=== PATIENT | female | born 1960 | race Caucasian/White ===

== ENCOUNTER → 2018-04-07 14:14 | Outpatient (POV) | payer OTHER, SELFPAY | PROVIDERS: Family Provider Nurse Practitioner; Visit Provider Physician Assistant | DX: Z00.00 Encounter for general adult medical examination without abnormal findings (principal) ==

== ENCOUNTER → 2018-08-12 14:52 | Outpatient (POV) | payer OTHER, SELFPAY | PROVIDERS: Visit Provider Dermatology | DX: Z00.00 Encounter for general adult medical examination without abnormal findings (principal) ==

== ENCOUNTER → 2018-08-26 09:50 | Outpatient (CLI) | payer OTHER, SELFPAY ==
--- NOTE | 2018-08-26 10:14 | MM_ITS ---
MM Dig screening mamm BI w/CAD CAD Screening COMPARISON: Digital mammograms with CAD 06/11/2017 and 08/29/2015 INDICATION: There is no personal or family history of breast cancer TECHNIQUE: Standard CC and MLO images were obtained. R2 CAD reviewed. FINDINGS: Moderate diffuse heterogenic fibroglandular densities are seen in both breasts and the findings are bilateral and symmetrical. There is a mole marker in her quadrant left breast. There is no suspicious lesion and there are no suspicious microcalcifications. IMPRESSION: Stable moderate breast density with no suspicious lesion seen BI-RADS Category: 1 Negative RECOMMENDED FOLLOW-UP: 1YR - 1 YEAR FOLLOW-UP (A letter has been sent to the patient regarding results of the study.)
[2018-08-26 12:40] LABS: Alanine Aminotransferase 25 U/L (12-78); Albumin Level 3.9 gm/dL (3.4-5.0); Albumin/Globulin Ratio 1.4 (1.1-1.8); Alkaline Phosphatase 60 U/L (46-116); Anion Gap 15.5 mEq/L (5-15); Aspartate Amino Transferase 18 U/L (15-37); Bilirubin,Total 0.5 mg/dL (0.2-1.0); Blood Urea Nitrogen 15 mg/dL (7-18); Calcium 8.7 mg/dL (8.5-10.1); Carbon Dioxide 27 mmol/L (21.0-32.0); Chloride 102 mmol/L (98-107); Chol/HDL Ratio 4.1 (1-3.5); Cholesterol 189 mg/dL (140-200); Creatinine,Serum 0.62 mg/dL (0.55-1.02); Estimated Glomerular Filt Rate 100 ml/min (>60); Free T4 (Free Thyroxine) 0.95 ng/dl (0.76-1.46); GFR (African American) 121 ML/MIN (>60); Globulin 2.8 gm/dl (1.3-3.2); Glucose 98 mg/dL (74-106); HDL Cholesterol 46 mg/dL (29-89); LDL Cholesterol 128 mg/dL (0-130); Potassium 4.5 mmoL/L (3.5-5.1); Sodium 140 mmol/L (136-145); Total Protein,Serum 6.7 gm/dL (6.4-8.2); Triglycerides 76 mg/dL (30-200); VLDL Cholesterol 15 mg/dL (0-40)
[2018-08-26 13:17] LABS: Hemoglobin A1C 5.2 % (0.0-7.0)
== END ==
PROVIDERS: Visit Provider Nurse Practitioner
DX: Z83.3 Family history of diabetes mellitus (principal); Z83.49 Family history of other endocrine, nutritional and metabolic diseases; Z12.31 Encounter for screening mammogram for malignant neoplasm of breast
CPT/HCPCS: 36415; 77067; 80053; 80061; 83036; 84439; 84443

== ENCOUNTER → 2019-04-28 15:16 | Outpatient (POV) | payer OTHER, SELFPAY | PROVIDERS: Visit Provider Dermatology | DX: Z00.00 Encounter for general adult medical examination without abnormal findings (principal) ==

== ENCOUNTER → 2019-05-19 15:07 | Outpatient (POV) | payer OTHER, SELFPAY | PROVIDERS: Visit Provider Dermatology | DX: Z00.00 Encounter for general adult medical examination without abnormal findings (principal) ==

== ENCOUNTER → 2019-06-16 15:44 | Outpatient (POV) | payer OTHER, SELFPAY | PROVIDERS: Visit Provider Dermatology | DX: Z00.00 Encounter for general adult medical examination without abnormal findings (principal) ==

== ENCOUNTER → 2019-08-03 10:09 | Outpatient (CLI) | payer OTHER, SELFPAY ==
--- NOTE | 2019-08-03 10:13 | XR_ITS ---
PROCEDURE: XR CHEST 2V CLINICAL HISTORY: COUGH COMPARISON: No exams were available for comparison FINDINGS: The cardiomediastinal silhouette and pulmonary vascularity are within normal limits. The lungs are clear without infiltrates, suspicious nodules, or pleural effusions. No acute bony abnormalities. IMPRESSION: No acute findings. Dictated by: Thong Groves MD 08/03/2019 10:48 Electronically signed by Thong Groves MD in [place] 08/03/2019 10:48
== END ==
PROVIDERS: PCP Nurse Practitioner; Visit Provider Nurse Practitioner
DX: R05 Cough (principal)
CPT/HCPCS: 71046

== ENCOUNTER → 2019-10-14 12:36 | Outpatient (CLI) | payer OTHER, SELFPAY ==
--- NOTE | 2019-10-14 12:39 | MM_ITS ---
PROCEDURE: MM DIG SCREENING MAMM BI W/CAD Digital Breast Tomosynthesis Included CLINICAL INDICATION: SCREENING There is no personal or family history of breast cancer. COMPARISON: [facility]MSB DIG MAMM-SCREEN MARTINA from 08/29/2015 DMSB DIG MAMM-SCREEN MARTINA W/CAD from 06/11/2017 [facility] MM Dig screening mamm BI w/CAD from 08/26/2018 TECHNIQUE: Standard CC and MLO images and 3D Tomosynthesis was obtained. R2 CAD reviewed. FINDINGS: Moderate diffuse fibroglandular densities are seen in the subareolar regions and central portions of both breasts. Kvng images were reviewed. Compared with previous studies dating back to August 2015 there has been some fatty involution of the breast parenchyma bilaterally. There is no suspicious lesion and no suspicious microcalcifications. IMPRESSION: Moderate breast density with no suspicious lesions seen BI-RAD Category: 1 Negative FOLLOW-UP: 1YR 1 Year Follow-up (A letter has been sent to the patient regarding results of the study.) Dictated by: Dr. Phillip Mcconnell MD 10/15/2019 15:[address] Phillip Mcconnell MD in [place] 10/15/2019 15:01
== END ==
PROVIDERS: PCP Nurse Practitioner; Visit Provider Nurse Practitioner
DX: Z12.31 Encounter for screening mammogram for malignant neoplasm of breast (principal)
CPT/HCPCS: 77063; 77067

== ENCOUNTER → 2020-11-08 14:49 | Outpatient (POV) | payer OTHER, SELFPAY | PROVIDERS: Visit Provider Dermatology | DX: Z00.00 Encounter for general adult medical examination without abnormal findings (principal) ==

== ENCOUNTER → 2020-11-29 15:15 | Outpatient (POV) | payer OTHER, SELFPAY | PROVIDERS: Visit Provider Dermatology | DX: Z00.00 Encounter for general adult medical examination without abnormal findings (principal) ==

== ENCOUNTER → 2020-12-13 15:39 | Outpatient (POV) | payer OTHER, SELFPAY | PROVIDERS: Visit Provider Dermatology | DX: Z00.00 Encounter for general adult medical examination without abnormal findings (principal) ==

== ENCOUNTER → 2021-02-06 15:37 | Outpatient (CLI) | payer BC, SELFPAY ==
--- NOTE | 2021-02-06 15:40 | MM_ITS ---
PROCEDURE: MM DIG SCREENING MAMM BI W/CAD Digital Breast Tomosynthesis Included CLINICAL INDICATION: SCREENING There is no personal or family history of breast cancer. COMPARISON: MG DMSB DIG MAMM-SCREEN MARTINA W/CAD from 06/11/2017 MG [facility] MM Dig screening mamm BI w/CAD from 08/26/2018 MG MM DIG SCREENING MAMM BI W/CAD from 10/14/2019 TECHNIQUE: Standard CC and MLO images and 3D Tomosynthesis was obtained. R2 CAD reviewed. FINDINGS: Moderate somewhat heterogenic fibroglandular densities seen in central portions of breasts. There are no CAD markings. No or suspicious lesion in either breast and no suspicious microcalcifications. IMPRESSION: Moderate breast density with no suspicious lesions BI-RAD Category: 1 Negative FOLLOW-UP: 1YR 1 Year Follow-up (A letter has been sent to the patient regarding results of the study.) Dictated by: Dr. Phillip Mcconnell MD 02/08/2021 08:29 Dr. Phillip Mcconnell MD in [place] 02/08/2021 08:29
== END ==
PROVIDERS: PCP Family Medicine; Visit Provider Physician Assistant
DX: Z12.31 Encounter for screening mammogram for malignant neoplasm of breast (principal)
CPT/HCPCS: 77063; 77067

== ENCOUNTER → 2021-04-04 08:57 | Outpatient (CLI) | payer BC, SELFPAY ==
[2021-04-04 10:17] LABS: Alanine Aminotransferase 22 U/L (12-78); Albumin/Globulin Ratio 1.6 (1.1-1.8); Alkaline Phosphatase 86 U/L (38-126); Anion Gap 11.6 mEq/L (5-15); Aspartate Amino Transferase 33 U/L (14-36); Bilirubin,Total 0.6 mg/dl (0.2-1.3); Blood Urea Nitrogen 13 mg/dl (7-17); Calcium 9.1 mg/dl (8.4-10.2); Carbon Dioxide 29 mmol/L (22.0-30.0); Chloride 103 mmol/L (98-107); Chol/HDL Ratio 3.5 (1-3.5); Cholesterol 273 mg/dl (140-200); Estimated Glomerular Filt Rate 127 ml/min (>60); GFR (African American) 153 ML/MIN (>60); Globulin 2.5 g/dL (1.3-3.2); Glucose 99 mg/dl (74-100); HDL Cholesterol 77 mg/dl (40-60); Potassium 4.6 mmoL/L (3.5-5.1); Sodium 139 mmol/L (136-145); Total Protein,Serum 6.5 g/dl (6.3-8.2); Triglycerides 153 mg/dl (30-150); VLDL Cholesterol 31 mg/dL (0-40)
[2021-04-04 10:27] LABS: Direct LDL Cholesterol 146.92 mg/dL (100-129)
[2021-04-04 10:47] LABS: Thyroid Stimulating Hormone 3.86 uIU/mL (0.465-4.68)
== END ==
PROVIDERS: Visit Provider Physician Assistant
DX: R23.2 Flushing (principal); Z13.220 Encounter for screening for lipoid disorders
CPT/HCPCS: 36415; 80053; 80061; 84443

== ENCOUNTER → 2021-07-17 18:02 | Outpatient (CLI) | payer BC, SELFPAY | PROVIDERS: PCP Family Medicine; Visit Provider Nurse Practitioner | DX: Z20.822 Contact with and (suspected) exposure to COVID-19 (principal) | CPT/HCPCS: C9803; U0003; U0005 ==

== ENCOUNTER → 2021-07-31 13:22 | Outpatient (CLI) | payer BC, SELFPAY | PROVIDERS: PCP Family Medicine; Visit Provider Nurse Practitioner | DX: Z20.822 Contact with and (suspected) exposure to COVID-19 (principal) | CPT/HCPCS: C9803; U0003; U0005 ==

== ENCOUNTER → 2021-12-14 09:00 | Outpatient (CLI) | payer BC, SELFPAY ==
[2021-12-14 10:44] LABS: Chol/HDL Ratio 4.2 (1-3.5); Cholesterol 263 mg/dl (140-200); HDL Cholesterol 63 mg/dl (40-60); Triglycerides 112 mg/dl (30-150); VLDL Cholesterol 22 mg/dL (0-40)
[2021-12-14 10:56] LABS: Direct LDL Cholesterol 146.91 mg/dL (100-129)
== END ==
PROVIDERS: Visit Provider Physician Assistant
DX: Z13.220 Encounter for screening for lipoid disorders (principal)
CPT/HCPCS: 36415; 80061

== ENCOUNTER 2021-12-14 09:21 | Emergency (ER) | payer BC, SELFPAY ==
[2021-12-14 09:39] VITALS: BP 143/78; PULSE 82; RESP 19; TEMP 37; O2SAT 95; BMI 31.1
--- NOTE | 2021-12-14 09:39 | HMH.EDUTC ---
[facility] [place] Clinical Impression: Encounter for laboratory testing for COVID-19 virus Disposition: Home, Self-Care Condition on Discharge: Good Instructions: Preventing the Spread of Coronavirus Discharge Instructions Additional Instructions: Drink plenty of fluids. Take tylenol for pain or fever. Follow up with your regular doctor. GO TO THE ER FOR ANY WORSENING SYMPTOMS Referrals: Sandie Hinojosa MD [Primary Care Provider] - Time of Disposition: 09:39 Medical Decision Making - Medical Records Medical records reviewed: No: I reviewed the patient's medical records. - Arley Inquiry Pt receiving controlled substance: No Vital Signs: 12/14/21 09:39 12/14/21 09:43 Temperature 98.6 F 98.6 F Temperature Source Oral Pulse Rate 82 Pulse Rate [Left Radial] 82 Respiratory Rate 19 19 Blood Pressure 143/78 H Blood Pressure [Right Arm] 143/78 H Blood Pressure Mean [Right Arm] 99 02 Sat by Pulse Oximetry 95 Orders (Tests/Meds): ORDERS Category Date Time Status Covid-19 Nasal PCR ([facility]) Routine Lab 12/14/21 09:30 Received [facility] HPI - General Stated complaint: covid test Time Seen by Provider: 12/14/21 09:39 - History of Present Illness Provider Complaint: She is here for to have a covid-19 test so he can travel. She denies any symptoms. - Related Data Allergies Allergy/AdvReac Type Severity Reaction Status Date / Time No Known Allergies Allergy Unverified 07/09/17 15:24 [facility] History - Hepatitis A Screen Attestation statement:: This patient has been screened for Hepatitis A risk factors. I have reviewed the patient's past medical history: Yes ROS Obtained: Yes All systems reviewed & no additional complaints - Constitutional Constitutional: Reports system reviewed and no additional complaints, except as docu - Eyes Eyes: Reports system reviewed and no additional complaints, except as docu - ENT Ears, Nose, Mouth, and Throat: Reports system reviewed and no additional complaints, except as docu - Cardiovascular Cardiovascular: Reports system reviewed and no additional complaints, except as docu - Respiratory Respiratory: Reports system reviewed and no additional complaints, except as docu - Gastrointestinal Gastrointestingal: Reports: system reviewed and no additional complaints, except as docu Physical Exam - General General appearance: alert, in no apparent distress - Head Head exam: atraumatic, normocephalic, normal inspection - Eye Eye exam: Present: normal appearance, PERRL, EOMI - ENT ENT exam: Present: normal exam, normal oropharynx, mucous membranes moist, TM's normal bilaterally, normal external ear exam - Neck Neck exam: Present: normal inspection, full ROM, trachea midline. Absent: meningismus, lymphadenopathy - Chest Chest inspection: Present: normal inspection, symmetric chest wall rise. Absent: tenderness - Respiratory Respiratory exam: Present: normal lung sounds bilaterally. Absent: respiratory distress - Cardiovascular Cardiovascular exam: Present: regular rate, normal rhythm. Absent: JVD - Abdominal Exam Abdominal exam: Present: soft, normal bowel sounds. Absent: distention, tenderness, guarding - Extremities Exam Extremities exam: Present: normal inspection, full ROM, normal capillary refill. Absent: calf tenderness - Back Exam Back exam: Present: normal inspection. Absent: tenderness - Neurological Exam Neurological exam: Present: alert, oriented X3 - Psychiatric Psychiatric exam: Present: normal affect, normal mood - Skin Skin exam: Present: warm, dry, intact, normal color - Lymphatic Lymphatic Findings: no adenopathy
[2021-12-14 09:43] VITALS: BP 143/78; PULSE 82; RESP 19; TEMP 37
== END 2021-12-14 09:44 | disposition home or self-care (01) ==
PROVIDERS: Emergency Provider Nurse Practitioner Family; PCP Family Medicine
DX: Z11.52 Encounter for screening for COVID-19 (principal)
CPT/HCPCS: 99211; C9803; G0463; U0003; U0005

== ENCOUNTER → 2023-02-25 13:08 | Outpatient (CLI) | payer BC, SELFPAY ==
--- NOTE | 2023-02-25 13:16 | MM_ITS ---
PROCEDURE INFORMATION: Exam: MG Bilateral Screening 3D Mammography Exam date and time: 02/25/2023 1:08 PM Age: 62 years old Clinical indication: Screening examination TECHNIQUE: Imaging protocol: Bilateral Screening tomosynthesis and 2D mammography including computer-aided detection (CAD) when performed. COMPARISON: 1. MG MM DIG SCREENING MAMM BI W/CAD 02/06/2021 3:51 PM 2. MG MM DIG SCREENING MAMM BI W/CAD 10/14/2019 12:42 PM FINDINGS: MAMMOGRAPHY: Breast composition: The breasts are heterogeneously dense, which may obscure small masses. Mass: None. Architectural distortion: None. Calcifications: No suspicious calcifications. Asymmetric density: None. Skin thickening: None. Axillary adenopathy: None. IMPRESSION: No mammographic evidence of malignancy. Annual screening is recommended unless otherwise clinically indicated. ASSESSMENT: BI-RADS Category 1: Negative
== END ==
PROVIDERS: PCP Family Medicine; Visit Provider Physician Assistant
DX: Z12.31 Encounter for screening mammogram for malignant neoplasm of breast (principal)
CPT/HCPCS: 77063; 77067

== ENCOUNTER → 2023-04-10 08:27 | Outpatient (CLI) | payer BC, SELFPAY ==
[2023-04-10 09:02] LABS: Basophils # 0.1 K/mm3 (0-0.2); Basophils % 1.3 % (0.1-2.0); Eosinophils # 0.2 K/mm3 (0.0-0.4); Hematocrit 45.8 % (37.0-47.0); Hemoglobin 14.5 g/dL (12.2-16.2); Lymphocytes % 35.6 % (10-50); Mean Corpuscular HGB Conc 31.6 g/dL (31.8-35.4); Mean Corpuscular Hemoglobin 30.3 pg (27.0-31.2); Mean Platelet Volume 7.5 fl (7.4-10.4); Monocytes # 0.3 K/mm3 (0.1-1.0); Monocytes % 5.4 % (1.7-9.3); Neutrophils % 53.7 % (37.0-80.0); Platelet Count 280 K/mm3 (142-424); Red Blood Count 4.77 M/mm3 (4.20-5.40); Red Cell Distribution Width 13.3 % (11.5-17.5); White Blood Count 5.6 K/mm3 (4.8-10.8)
[2023-04-10 10:42] LABS: Alanine Aminotransferase 30 U/L (12-78); Albumin Level 4.3 g/dl (3.5-5.0); Albumin/Globulin Ratio 1.8 (1.1-1.8); Alkaline Phosphatase 75 U/L (38-126); Anion Gap 12.4 mEq/L (5-15); Aspartate Amino Transferase 35 U/L (14-36); Bilirubin,Total 0.4 mg/dl (0.2-1.3); Blood Urea Nitrogen 18 mg/dl (7-17); Carbon Dioxide 28 mmol/L (22.0-30.0); Chloride 105 mmol/L (98-107); Chol/HDL Ratio 2.9 (1-3.5); Cholesterol 228 mg/dl (140-200); Estimated Glomerular Filt Rate 126 ml/min (>60); GFR (African American) 152 ML/MIN (>60); Globulin 2.4 g/dL (1.3-3.2); Glucose 97 mg/dl (74-100); HDL Cholesterol 78 mg/dl (40-60); Potassium 4.4 mmoL/L (3.5-5.1); Sodium 141 mmol/L (136-145); Total Protein,Serum 6.7 g/dl (6.3-8.2); Triglycerides 149 mg/dl (30-150); VLDL Cholesterol 30 mg/dL (0-40)
[2023-04-10 10:53] LABS: Direct LDL Cholesterol 109.76 mg/dL (100-129)
== END ==
PROVIDERS: Visit Provider Nurse Practitioner Family
DX: E78.2 Mixed hyperlipidemia (principal); N95.1 Menopausal and female climacteric states
CPT/HCPCS: 36415; 80053; 80061; 85025

== ENCOUNTER 2024-03-03 09:20 | Outpatient (CLI) | payer BC, SELFPAY ==
--- NOTE | 2024-03-03 09:30 | MM_ITS ---
PROCEDURE INFORMATION: Exam: MG Bilateral Screening 3D Mammography Exam date and time: 03/03/2024 9:48 AM Age: 63 years old Clinical indication: Screening. No family history of breast cancer. TECHNIQUE: Imaging protocol: Bilateral Screening tomosynthesis and 2D mammography including computer-aided detection (CAD) when performed. COMPARISON: 1. MG MM DIG SCREENING MAMM BI W/CAD 02/25/2023 1:08 PM 2. MG MM DIG SCREENING MAMM BI W/CAD 02/06/2021 3:51 PM 3. MG MM DIG SCREENING MAMM BI W/CAD 10/14/2019 12:42 PM 4. MG [facility] MM Dig screening mamm BI w/CAD 08/26/2018 10:47 AM FINDINGS: MAMMOGRAPHY: Breast composition: The breasts are heterogeneously dense, which may obscure small masses. Mass: None. Architectural distortion: None. Calcifications: No suspicious calcifications. Asymmetric density: None. Skin thickening: None. Axillary adenopathy: None. IMPRESSION: No mammographic evidence of malignancy. Annual screening is recommended unless otherwise clinically indicated. ASSESSMENT: BI-RADS Category 1: Negative
[2024-03-03 09:36] LABS: Basophils # 0.1 K/mm3 (0-0.2); Basophils % 1.2 % (0.1-2.0); Eosinophils # 0.1 K/mm3 (0.0-0.4); Eosinophils % 3.3 % (0.1-12.0); Hematocrit 44.2 % (37.0-47.0); Hemoglobin 14.2 g/dL (12.2-16.2); Lymphocytes # 1.5 K/mm3 (0.7-4.5); Lymphocytes % 37.3 % (10-50); Mean Corpuscular HGB Conc 32.1 g/dL (31.8-35.4); Mean Corpuscular Hemoglobin 31.7 pg (27.0-31.2); Mean Corpuscular Volume 98.9 fl (81-99); Mean Platelet Volume 7.7 fl (7.4-10.4); Monocytes # 0.3 K/mm3 (0.1-1.0); Monocytes % 6.5 % (1.7-9.3); Neutrophils # 2.1 K/mm3 (1.8-7.8); Neutrophils % 51.8 % (37.0-80.0); Platelet Count 212 K/mm3 (142-424); Red Blood Count 4.47 M/mm3 (4.20-5.40); Red Cell Distribution Width 13.6 % (11.5-17.5)
[2024-03-03 10:13] LABS: Albumin Level 4.2 g/dl (3.5-5.0); Chloride 106 mmol/L (98-107)
[2024-03-03 10:14] LABS: Potassium 4.1 mmoL/L (3.5-5.1); Sodium 139 mmol/L (136-145)
[2024-03-03 10:16] LABS: Alanine Aminotransferase 47 U/L (12-78); Anion Gap 7.1 mEq/L (5-15); Aspartate Amino Transferase 51 U/L (14-36); Blood Urea Nitrogen 17 mg/dl (7-17); Carbon Dioxide 30 mmol/L (22.0-30.0); Estimated Glomerular Filt Rate 162 ml/min (>60); GFR (African American) 196 ML/MIN (>60)
[2024-03-03 10:17] LABS: Albumin/Globulin Ratio 1.7 (1.1-1.8); Alkaline Phosphatase 88 U/L (38-126); Bilirubin,Total 0.7 mg/dl (0.2-1.3); Calcium 8.5 mg/dl (8.4-10.2); Chol/HDL Ratio 2.4 (1-3.5); Cholesterol 225 mg/dl (140-200); Globulin 2.5 g/dL (1.3-3.2); Glucose 95 mg/dl (74-100); HDL Cholesterol 93 mg/dl (40-60); Total Protein,Serum 6.7 g/dl (6.3-8.2); Triglycerides 111 mg/dl (30-150); VLDL Cholesterol 22 mg/dL (0-40)
[2024-03-03 10:28] LABS: Direct LDL Cholesterol 96.65 mg/dL (100-129)
[2024-03-03 10:48] LABS: Thyroid Stimulating Hormone 3.42 uIU/mL (0.465-4.68)
== END 2024-03-03 23:59 | disposition home or self-care (01) ==
LOC: RAD 09:21
PROVIDERS: PCP Physician Assistant; Visit Provider Physician Assistant
DX: Z12.31 Encounter for screening mammogram for malignant neoplasm of breast (principal); R51.9 Headache, unspecified; E78.2 Mixed hyperlipidemia
CPT/HCPCS: 36415; 77063; 77067; 80050; 80053; 80061; 84443; 85025

== ENCOUNTER 2024-03-25 08:44 | Outpatient (CLI) | payer BC, SELFPAY ==
--- NOTE | 2024-03-25 08:49 | XR_ITS ---
FINAL REPORT CLINICAL HISTORY: SCREENING COMPARISON: None FINDINGS: Using L1-4, the bone mineral density of the spine is 0.954 g/cm2, corresponding to T-score of -0.8 which is within normal limits. Using the left hip, the bone mineral density of the femoral neck is 0.656 g/cm2, corresponding to a T-score of -1.7 which is consistent with low bone density. Using the right hip, the bone mineral density of the femoral neck is 0.651 g/cm2, corresponding to a T-score of -1.8 which is consistent with low bone density. FRAX 10 year fracture risk is 0.9% for a hip fracture and 8.6% for a major osteoporotic fracture. NOTE: T-score: Standard deviation compared with peak bone mass of young adult mean. *Following the recommendations of the International Society of Bone densitometry, classification of hip BMD is based on the lower of two T-scores; total hip or femoral neck. IMPRESSION: Diminished bone mineral density consistent with low bone density. Reviewed, Interpreted and Dictated by Thien Morales III, MD Transcribed by Dejah Tillman Authenticated and [facility]
== END 2024-03-25 23:59 | disposition home or self-care (01) ==
LOC: RAD 08:44
PROVIDERS: PCP Physician Assistant; Visit Provider Physician Assistant
DX: Z13.820 Encounter for screening for osteoporosis (principal)
CPT/HCPCS: 77080

== ENCOUNTER 2025-04-01 07:40 | Outpatient (CLI) | payer BC, SELFPAY ==
--- OUTSIDE RECORDS SUMMARY | 2024-05-06 09:35 | XMS_ITS ---
Author Organization [facility] Address [address] [facility] [address] [place], [place] [id number] Care Team Providers Care Tube Maker Name Role Phone Ambreen Allred Primary Care Provider Allergies No Known Allergies Results Component Value Reference Range Notes CBC Venipuncture (in house) Reviewed date:05/06/2024 02:48:05 PM Interpretation: Performing Lab: Notes/Report: wbc 6.2 3.5 - 10 lymph 33.9 15 - 50 mid 6.6 2 - 15 gran 59.5 35 - 80 rbc 4.27 3.5 - 5.5 hgb 13.3 11.5 - 16.5 hct 40.0 35 - 55 mcv 93.8 75 - 100 mch 31.2 25 - 35 mchc 33.2 31 - 38 platlet 231 100 - 400 P-Comprehensive Metabolic Pa dsiha (CMP) Reviewed date:05/14/2024 09:31:04 AM Interpretation:Normal Performing Lab: Notes/Report: Test performed by [facility] [address] [place] [address] , [address], [place] [address] Doe Ashley MD, Billet Grinder CLIA: [id number] Sodium 141 135-145 mmol/L Potassium 4.1 3.5-5.3 mmol/L Chloride 101 97-108 mmol/L CO2 29 22-32 mmol/L Glucose 92 65-99 mg/dL BUN 19 8-23 mg/dL Creatinine 0.57 0.50-1.00 mg/dL Calcium 9.3 8.6-10.4 mg/dL eGFR by Creatinine 103 >59 mL/min/1.73m2 Protein 6.5 6.0-8.3 g/dL Albumin 4.3 3.5-5.3 g/dL Alkaline Phosphatase 76 35-121 IU/L ALT (SGPT) 26 <5-47 IU/L AST (SGOT) 28 <5-40 IU/L Bilirubin, Total 0.6 <0.2-1.2 mg/dL A/G Ratio 2.0 1.1-2.5 REASON FOR VISIT BP f/u Medications Medication SIG (Take, Route, Frequency, Duration) Notes Start Date End Date Status Lipitor 10 MG 1 tab(s) orally once a day; Duration: 90 days Active Metoprolol Succinate ER 50 MG 1 tablet Orally Once a day; Duration: 30 day(s) 03/26/2024 Active tiZANidine HCl 2 MG 1-2 tablets at bedti me as needed Orally Once a day 03/26/2024 Active Celecoxib 200 MG 1 capsule with food Orally Once a day 03/26/2024 Active PARoxetine HCl 20 MG 1 tab(s) orally onc e a day; Duration: 90 days Active Problems Problem Type SNOMED Code ICD Code Onset Dates Problem Status W/U Status Risk Notes Problem Menopausal and perimenopausal disorder (N95.9) Active confirmed Vital Signs Blood pressure systolic 130 mm Hg 05/06/20 24 Blood pressure diastolic 68 mm Hg 024 Heart Rate 64 /min 05/06/2024 Height 63 in 05/06/2024 Weight 182.6 lbs 05/06/2024 BMI 32.34 kg/m2 05/06/2024 Encounters Encounter Location Date Provider Diagnosis [facility] [address] [place], [place] [id number] 05/06/2024 Ambreen Allred Mixed hyperlipidemia E78.2 and Essential hypertension I10 Assessments Encounter Date Diagnosis (ICD Code) Assessment Notes Treatment Notes Treatment Clinical Notes Section Notes 05/06/2024 Mixed hyperlipidemia (ICD-10 - E78.2) 05/06/2024 Essential hypertension (ICD-10 - I10) BP is much better. Will recheck labs and if all is normal, she can wait and f/u in 6 months. Plan Of Treatment Treatment Notes Assessment Notes Essential hypertension BP is much better . Will recheck labs and if all is normal, she can wait and f/u in 6 months. Next Appt Details Follow Up: via phone to repo rt test results, Reason: Progress Notes * KAIT HELMB:1960 ([age] yo F)Acc No.[id number]:05/06/2024 Patient: AMRITA AVITIA Provider: EDWIN Mills :1960 A ge:63 Y S ex:Female Date:05/06/2024 Address:[address] [place] [address], [facility] Subjective: * Chief Complaints: * 1 . BP f/u. * HPI: C ardiology: 63 year old female presents with c/o Blood Pressure Elevated?Pt is here today for f/u on her bp. Pt does check her bp at home. * ROS: D ERMATOLOGY: no R david. n o H jung. G ASTROENTEROLOGY: no N ausea. n o V omiting. n o D iarrhea.? U ROLOGY: no D ifficulty urinating. n o B lood in urine. * Medical History: S tomach Ulcers, Cervical stenosis with injections and decompression therapy. * Surgical History: A ppendectomy, [facility] 2007. * Family History: F ather: alive, diagnosed with Hypertension. M other: alive. 3 brother(s) - healthy. 2 daughter(s) - healthy. . 1 brother - MS\n1 brother - Glioblastoma brain tumor. * Social History: C URRENT TOBACCO USE: No . C affeine: yes, frequency: tea x 2 cups daily. Home smoke detector use: yes. Marital Status: . * Medications: T aking Lipitor 10 MG Tablet 1 tab(s) orally once a day , Taking PARoxetine HCl 20 MG Tablet 1 tab(s) orally once a day , Taking Celecoxib 200 MG Capsule 1 capsule with food Orally Once a day , Taking tiZANidine HCl 2 MG Tablet 1-2 tablets at bedtime as needed Orally Once a day , Taking Metoprolol Succinate ER 50 MG Tablet Extended Release 24 Hour 1 tablet Orally Once a day , Medication List reviewed and reconciled with the patient * Allergies: N .K.D.A. Objective: * Vitals: W t:182.6, Temp:97.9, BP:130/68, HR:64, O2 Sat:95% on RA, Nurse:[facility], Ht: 63, BMI:32.34. * Examination: G eneral Examination: General Appearance: N AD. C hest: n ormal shape and expansion. H eart: R SR. L ungs: c lear to auscultation. A bdomen: bowel sounds present, soft and nontender, no organomegaly or masses, no guarding or rigidity. ? Assessment: * Assessment: 1. E ssential hypertension - I10 (Primary) 2 . M ixed hyperlipidemia - E78.2 Plan: * Treatment: Value Reference Range A /G Ratio 2.0 1.1-2.5 - * A lbumin 4.3 3.5-5.3 - g/dL * A lkaline Phosphatase 76 35-121 - IU/L * A LT (SGPT) 26 <5-47 - IU/L * A ST (SGOT) 28 <5-40 - IU/L * B ilirubin, Total 0.6 <0.2-1.2 - mg/dL * B UN 19 8-23 - mg/dL * C alcium 9.3 8.6-10.4 - mg/dL * C hloride 101 97-108 - mmol/L * C O2 29 22-32 - mmol/L * C reatinine 0.57 0.50-1.00 - mg/dL * G lucose 92 65-99 - mg/dL * P otassium 4.1 3.5-5.3 - mmol/L * S odium 141 135-145 - mmol/L * P rotein 6.5 6.0-8.3 - g/dL * e GFR by Creatinine 103 >59 - mL/min/1.73m2 * Ambreen Allred 05/07/2024 1 2:57:51 PM > Please let patient know this was normalSweta Leyva 05/14/2024 09:26:20 AM > Pt informed ?LAB: CBC Venipuncture (in house) (Collection Date & Time - 05/06/2024)* Value Reference Range w bc 6.2 3.5 - 10 * l ymph 33.9 15 - 50 * m id 6.6 2 - 15 * g ran 59.5 35 - 80 * r bc 4.27 3.5 - 5.5 * h gb 13.3 11.5 - 16.5 * h ct 40.0 35 - 55 * m cv 93.8 75 - 100 * m ch 31.2 25 - 35 * m chc 33.2 31 - 38 * p latlet 231 100 - 400 * Shanti Blancas 05/06/2024 2:24 :43 PM >Ambreen Allred Richie 05/06/2024 2:47:59 PM > Notes: BP is much better. Will recheck labs and if all is normal, she can wait and f/u in 6 months. ? * Procedure Codes: 9 4760 [place], [address] CBC WITH AUTO DIFF, 19150 VENIPUNCT, ROUTINE* * Follow Up: v ia phone to report test results * Images: Billing Information: * Visit Code: 33231 Office Visit, Est Pt., Level 3. * Procedure Codes: [address] [place]. [address] CBC WITH AUTO DIFF. 53547 VENIPUNCT, ROUTINE*. * Electronic signature of EDWIN Muro on 04/01/2025 at 07:42 AM EDT Sign off status: Pending * Provider: EDWIN Mills Date: Generated for Niraj vargas/Bindu/eTransmitting on: 0 04/01/2025 07:42 AM EDT History and Physical Notes * HPI (History of Present Illness) Category Sub-Category Detail Notes Category Not es Cardiology Blood Pressure Elevated Pt is he re today for f/u on her bp. Pt does check her bp at home Examination Category Sub-Category Detail Notes Category Not es General Examination Heart: RSR Lungs: clear to auscultatio n Abdomen: bowel sounds present , soft and nontender, no organomegaly or masses, no guarding or rigidity General Appearance: NAD Chest: normal shape and exp ansion
--- OUTSIDE RECORDS SUMMARY | 2024-07-28 07:00 | XMS_ITS ---
Author Organization [facility] Address [address] [facility] [address] [place] [id number] Care Team Providers Care Chief Deputy Sheriff Name Role Phone Ambreen Allred Primary Care Provider [phone] Greg Vuong Unavailable [phone] Allergies No Known Allergies Results Component Value Reference Range Notes CBC Fingerstick (in house) Reviewed date:07/29/2024 09:12:44 AM Interpretation: Performing Lab: Notes/Report: wbc 10.0 3.5 - 10 lym 17.8% 15 - 50 mid 5.1% 2 - 15 gran 77.1% 35 - 80 rbc 4.45 3.5 - 5.5 hgb 14.0 11.5 - 16.5 hct 42.6 35 - 55 mcv 95.6 75 - 100 mch 31.6 25 - 35 mchc 33.0 31 - 38 plat 198 100 - 400 REASON FOR VISIT cough Medications Medication SIG (Take, Route, Frequency, Duration) Notes Start Date End Date Status Promethazine-DM 6.25-15 MG/5ML 5 ml as needed Orally every 6 hrs 07/28/2024 Active Lipitor 10 MG 1 tab(s) orally once a day; Duration: 90 days Active Cefdinir 300 MG 1 cap(s) Orally Two times a day; Duration: 7 days 07/28/2024 Active Metoprolol Succinate ER 50 MG 1 tablet Orally Once a day; Duration: 90 days Active tiZANidine HCl 2 MG 1-2 tablets at bedti me as needed Orally Once a day 03/26/2024 Active PARoxetine HCl 20 MG 1 tab(s) orally onc e a day; Duration: 90 days Active Celecoxib 200 MG 1 capsule with food Orally Once a day 03/26/2024 Active Vital Signs Blood pressure systolic 130 mm Hg 07/28/19 25 Blood pressure diastolic 80 mm Hg 025 Heart Rate 95 /min 07/28/2024 Height 63 in 07/28/2024 Weight 182.6 lbs 07/28/2024 BMI 32.34 kg/m2 07/28/2024 Encounters Encounter Location Date Provider Diagnosis [facility] [address] [facility] [address] [place] [id number] 07/28/2024 Greg Vuong Acute URI J06.9 Assessments Encounter Date Diagnosis (ICD Code) Assessment Notes Treatment Notes Treatment Clinical Notes Section Notes 07/28/2024 Acute URI (ICD-10 - J06.9) Plan Of Treatment Medication Medication Name Sig Start Date Stop Date Notes Promethazine-DM 6.25-15 MG/5ML 5 ml as n eeded Orally every 6 hrs 07/28/2024 Cefdinir 300 MG 1 cap(s) Orally Two times a day; Duration: 7 days 07/28/2024 Next Appt Details Follow Up: prn, Reason: Progress Notes * KAIT HELMB:1960 ([age] yo F)Acc No.[id number]:07/28/2024 Progress Notes Patient: ROBBI AVITIA Provider: Evette Vuong M.D. :1960 A ge:63 Y S ex:Female Date:07/28/2024 Address:[address] [place] [address], [facility] Pcp:Ambreen Allred Subjective: * Chief Complaints: * 1 . Cough. * HPI: E NT/respiratory: 63 year old female presents with c/o sore throat T he pt states she started about 8-9 days ago with sore throat, cough and runny nose. Pt states she is coughing up a lot of green mucus. c/o cough. c/o rhinorrhea. c/o Short of Breath. Denies : Fever. D enies : Chest Pain. * ROS: D ERMATOLOGY: no R david. n o H jung. G ASTROENTEROLOGY: no N ausea. n o V omiting. n o D iarrhea.? U ROLOGY: no D ifficulty urinating. n o B lood in urine. * Medical History: S tomach Ulcers, Cervical stenosis with injections and decompression therapy. * Surgical History: A ppendectomy, [facility] 2007. * Family History: F ather: alive, [...] N .K.D.A. Objective: * Vitals: W t:182.6, Temp:99.5, BP:130/80, HR:95, O2 Sat:92% on RA, Nurse:ONEAL, Ht: 63, BMI:32.34. * Examination: E NT/Respiratory: General Appearance: N AD. E yes: P ERRLA, sclera clear. E ars: a uditory canals normal bilaterally, TM's WNL. O ral cavity : erythema without exudate on pharynx. N walt : n o cervical lymphadenopathy. H eart : R RR, normal S1 S2. L ungs: c lear to auscultation bilaterally. Assessment: * Assessment: 1. Sandie kilgore URI - J06.9 (Primary) Plan: * Treatment: Value Reference Range w bc 10.0 3.5 - 10 * l ym 17.8% 15 - 50 * m id 5.1% 2 - 15 * g ran 77.1% 35 - 80 * r bc 4.45 3.5 - 5.5 * h gb 14.0 11.5 - 16.5 * h ct 42.6 35 - 55 * m cv 95.6 75 - 100 * m ch 31.6 25 - 35 * m chc 33.0 31 - 38 * p lat 198 100 - 400 * Yue Sarkar 07/28/2024 10:5 9:36 AM > , Provider reviewed results while patient in office. * Procedure Codes: 9 4760 [place], [address] CAPILLARY BLOOD DRAW, 65525 CBC WITH AUTO DIFF * Follow Up: p rn * Images: Billing Information: * Visit Code: 73636 Office Visit, Est Pt., Level 3. * Procedure Codes: [address] [place]. [address] CAPILLARY BLOOD DRAW. 83649 CBC WITH AUTO DIFF. * Electronic signature of Katiuska Vuong MD on 04/01/2025 at 07:42 AM EDT Sign off status: Pending * Provider: Evette Vuong M.D. Date: 0 07/28/2024 Generated for Rachelli alicia/Bindu/eTransmitting on: 0 04/01/2025 07:42 AM EDT History and Physical Notes * HPI (History of Present Illness) Category Sub-Category Detail Notes Category Not es ENT/respiratory sore throat The pt states sh e started about 8-9 days ago with sore throat, cough and runny nose. Pt states she is coughing up a lot of green mucus Short of Breath Chest Pain cough Fever rhinorrhea Examination Category Sub-Category Detail Notes Category Not es ENT/Respiratory Oral cavity : erythema without exudate on pharynx Ears: auditory canals norm al bilaterally, TM's WNL Neck : no cervical lymphade nopathy Heart : RRR, normal S1 S2 Lungs: clear to auscultatio n bilaterally General Appearance: NAD Eyes: PERRLA, sclera clear
--- OUTSIDE RECORDS SUMMARY | 2024-09-08 09:45 | XMS_ITS ---
Author Organization [facility] Address [address] [id number] Care Team Providers Care Blending Tank Tender Helper Name Role Phone Ambreen Allred Primary Care Provider [phone] Susi Long Unavailable [phone] Allergies No Known Allergies Results Component Value Reference Range Notes Influenza Screen (in house) Reviewed date:09/11/2024 04:28:51 PM Interpretation:neg Performing Lab: Notes/Report: neg results neg CBC Fingerstick (in house) Reviewed date:09/08/2024 07:33:40 PM Interpretation: Performing Lab: Notes/Report: wbc 6.5 3.5 - 10 lym 33.3 15 - 50 mid 7.3 2 - 15 gran 59.4 35 - 80 rbc 4.63 3.5 - 5.5 hgb 14.3 11.5 - 16.5 hct 42.8 35 - 55 mcv 92.3 75 - 100 mch 31.0 25 - 35 mchc 33.6 31 - 38 plat 164 100 - 400 Covid test (in house) Reviewed date:09/11/2024 10:38:25 AM Interpretation:neg Performing Lab: Notes/Report: neg Result: neg REASON FOR VISIT chest congestion Medications Medication SIG (Take, Route, Frequency, Duration) Notes Start Date End Date Status tiZANidine HCl 2 MG 1-2 tablets at bedti me as needed Orally Once a day; Duration: 30 day(s) 03/26/2024 Active Metoprolol Succinate ER 50 MG 1 tablet Orally Once a day; Duration: 90 days Active Celecoxib 200 MG 1 capsule with food Orally Once a day 03/26/2024 Active PARoxetine HCl 20 MG 1 tab(s) orally onc e a day; Duration: 90 days Active Lipitor 10 MG 1 tab(s) orally once a day; Duration: 90 days Active Benzonatate 200 MG 1 capsule as needed Orally tid prn 09/08/2024 Active Albuterol Sulfate HFA 108 (90 Base) MCG/ACT 1 puff as needed Inhalation QID AND PRN 09/08/2024 Active Vital Signs Blood pressure systolic 130 mm Hg 09/08/19 25 Blood pressure diastolic 90 mm Hg 025 Heart Rate 82 /min 09/08/2024 Height 63 in 09/08/2024 Weight 176.4 lbs 09/08/2024 BMI 31.24 kg/m2 09/08/2024 Encounters Encounter Location Date Provider Diagnosis [facility] [address] [place] [id number] 09/08/2024 Susi Long Bronchitis J4 0 Assessments Encounter Date Diagnosis (ICD Code) Assessment Notes Treatment Notes Treatment Clinical Notes Section Notes 09/08/2024 Bronchitis (ICD-10 - J40) fluids, rest, supportive measures for fever/symptom relief Plan Of Treatment Medication Medication Name Sig Start Date Stop Date Notes Benzonatate 200 MG 1 capsule as needed Orally tid prn 09/08/2024 Albuterol Sulfate HFA 108 (9 0 Base) MCG/ACT 1 puff as needed Inhalation QID AND PRN 09/08/2024 Treatment Notes Assessment Notes Bronchitis fluids, rest, suppor tive measures for fever/symptom relief Next Appt Details Follow Up: prn, Reason: Progress Notes * KAIT HELMB:1960 ([age] yo F)Acc No.[id number]:09/08/2024 Progress Notes Patient: ROBBI AVITIA Provider: PEBBLES Todd :1960 A ge:63 Y S ex:Female Date:09/08/2024 Address:[address] [place] [address], [place] [id number] Pcp:Ambreen Allred Subjective: * Chief Complaints: * 1 . Chest congestion. * HPI: E NT/respiratory: 63 year old female presents with c/o sore throat. c/o cough. c/o Fever P t sts she did have a fever last week, but none this week. c/o rhinorrhea. c/o post nasal drainage. c/o headache. c/o chest congestion. Denies : ear pain. D enies : Short of Breath. D enies : smoking. D enies : body aches. Pt sts all of her symptoms started a week ago; eating and drinking OK. * ROS: D ERMATOLOGY: no R david. n o H jung. G ASTROENTEROLOGY: no N ausea. n o V omiting. n o D iarrhea.? U ROLOGY: no D ifficulty urinating. n o B lood in urine. * Medical History: S tomach Ulcers, Cervical stenosis with injections and decompression therapy. * Surgical History: A ppendectomy, [facility] 2007. * Family History: F ather: [...] food Orally Once a day , Taking Metoprolol Succinate ER 50 MG Tablet Extended Release 24 Hour 1 tablet Orally Once a day , Taking tiZANidine HCl 2 MG Tablet 1-2 tablets at bedtime as needed Orally Once a day , Medication List reviewed and reconciled with the patient * Allergies: N .K.D.A. Objective: * Vitals: W t:176.4, Temp:98.7, BP:130/90, HR:82, O2 Sat:92% on RA, Nurse:marc, Ht: 63, BMI:31.24. * Examination: E NT/Respiratory: General Appearance: well nourished and hydrated, NAD, alert. E yes: sclera and conjunctiva clear. E ars: auditory canals normal bilaterally, tympanic membranes normal bilaterally. N ose : congested. O ral cavity : no erythema or exudate seen on pharynx. N walt : supple, no cervical lymphadenopathy. H eart : RRR. L ungs: occasional wheeze with rhonchi. Assessment: * Assessment: 1Waleska cook - J40 (Primary) Plan: * Treatment: * Labs: * L ab: CBC Fingerstick (in house) (Collection Date & Time - 09/08/2024) Value Reference Range w bc 6.5 3.5 - 10 * l ym 33.3 15 - 50 * m id 7.3 2 - 15 * g ran 59.4 35 - 80 * r bc 4.63 3.5 - 5.5 * h gb 14.3 11.5 - 16.5 * h ct 42.8 35 - 55 * m cv 92.3 75 - 100 * m ch 31.0 25 - 35 * m chc 33.6 31 - 38 * p lat 164 100 - 400 * Shanti Blancas 09/08/2024 2:07: 43 PM > Provider reviewed results while patient in office.Susi Long 09/08/2024 7:33:38 PM > ?Lab: Covid test (in house) (Collection Date & Time - 09/11/2024)?neg* Value Reference Range R esult: neg * Shanti Blancas 09/11/2024 10:38 :20 AM > Provider reviewed results while patient in office. ?Lab: Influenza Screen (in house) (Collection Date & Time - 09/11/2024)?neg * Value Reference Range r esults neg * Shanti Blancas 09/11/2024 10:37 :54 AM > Provider reviewed results while patient in office.Susi Long 09/11/2024 4:28:55 PM > * Procedure Codes: 9 [address] [place], [address] CAPILLARY BLOOD DRAW, 96[address] CBC WITH AUTO DIFF, 28740 Flu Test- Nasal Swab, Modifiers: QW , 68772 COVID TEST IN HOUSE, Modifiers: QW * Follow Up: p rn * Images: Billing Information: * Visit Code: 69111 Office Visit, Est Pt., Level 3. * Procedure Codes: [address] [place]. [address] CAPILLARY BLOOD DRAW. 31244 CBC WITH AUTO DIFF. 61671 Flu Test- Nasal Swab. Modifiers: QW 81973 COVID TEST IN HOUSE. Modifiers: QW * Electronic signature of Lizzette monteadithya Long APRN on 04/01/2025 at 07:42 AM EDT Sign off status: Pending * Provider: PEBBLES Todd Date: 0 09/08/2024 Generated for Printi ng/Faxing/eTransmitting on: 0 04/01/2025 07:42 AM EDT History and Physical Notes * HPI (History of Present Illness) Category Sub-Category Detail Notes Category Not es ENT/respiratory sore throat Pt sts all o f her symptoms started a week ago; eating and drinking OK ear pain Short of Breath cough Fever Pt sts she did have a fever last week, but none this week post nasal drainage headache chest congestion rhinorrhea smoking body aches Examination Category Sub-Category Detail Notes Category Not es ENT/Respiratory Oral cavity : no erythema or exudate s een on pharynx Ears: auditory canals norm al bilaterally, tympanic membranes normal bilaterally Neck : supple, no cervical lymphadenopathy Heart : RRR Lungs: occasional wheeze wi th rhonchi General Appearance: well nourished and h ydrated, NAD, alert Nose : congested Eyes: sclera and conjuncti va clear
--- OUTSIDE RECORDS SUMMARY | 2024-11-26 07:00 | XMS_ITS ---
Author Organization [facility] Address [address] [id number] Care Team Providers Care Group Product Manager Name Role Phone Ambreen Allred Primary Care Provider [phone] Allergies No Known Allergies Results Component Value Reference Range Notes Cologuard Reviewed date:12/24/2024 12:48:44 PM Interpretation:Negative Performing Lab: Notes/Report: Negative Cologuard negative REASON FOR VISIT 6 months, Needs labs, colon cancer screening, & shingles vaccine Medications Medication SIG (Take, Route, Frequency, Duration) Notes Start Date End Date Status Lipitor 10 MG 1 tab(s) orally once a day; Duration: 90 days Active tiZANidine HCl 2 MG 1-2 tablets at bedti me as needed Orally Once a day; Duration: 30 day(s) 03/26/2024 Active Wegovy 0.25 MG/0.5ML 0.25 mg Subcutaneou s once a week 11/26/2024 Active Celecoxib 200 MG TAKE 1 CAPSULE BY [facility] ONCE DAILY WITH FOOD; Duration: 90 Active PARoxetine HCl 20 MG 1 tab(s) orally onc e a day; Duration: 90 days Active Metoprolol Succinate ER 50 MG Take 1 tablet by mouth once daily; Duration: 90 Active Problems Problem Type SNOMED Code ICD Code Onset Dates Problem Status W/U Status Risk Notes Problem Obesity (216949718) Obesity (BMI 30-39.9) (E66.9) Active confirmed Problem Body mass index 30+ - obesity (570633940) BMI 30.0-30.9,almas lt (Z68.30) Active confirmed Vital Signs Blood pressure systolic 130 mm Hg 11/27/19 25 Blood pressure diastolic 90 mm Hg 025 Heart Rate 81 /min 11/26/2024 Height 63 in 11/26/2024 Weight 170.4 lbs 11/26/2024 BMI 30.18 kg/m2 11/26/2024 Encounters Encounter Location Date Provider Diagnosis [facility] [address] [facility] [address] [place] [id number] 11/26/2024 Ambreen Allred Obesity (BMI 30-39.9 ) E66.9 ; Encounter for weight management Z76.89 ; Hot flash, menopausal N95.1 ; Mixed hyperlipidemia E78.2 ; Essential hypertension I10 ; Menopausal and perimenopausal disorder N95.9 ; Anxiety F41.9 ; Colon cancer screening Z12.11 and BMI 30.0-30.9,adult Z68.30 Assessments Encounter Date Diagnosis (ICD Code) Assessment Notes Treatment Notes Treatment Clinical Notes Section Notes 11/26/2024 Obesity (BMI 30-39.9) (ICD-10 - E66.9) 11/26/2024 Encounter for weight management (ICD-10 - Z76.89) 11/26/2024 Hot flash, menopausal (ICD-10 - N95.1) 11/26/2024 Mixed hyperlipidemia (ICD-10 - E78.2) Will get labs at next appt. 11/26/2024 Essential hypertension (ICD-10 - I10) 11/26/2024 Menopausal and perimenopausal disorder (ICD-10 - N95.9) 11/26/2024 Anxiety (ICD-10 - F41.9) 11/26/2024 Colon cancer screening (ICD-10 - Z12.11) 11/26/2024 BMI 30.0-30.9,adult (ICD-10 - Z68.30) Plan Of Treatment Medication Medication Name Sig Start Date Stop Date Notes Wegovy 0.25 MG/0.5ML 0.25 mg Subcutaneous once a week 02/2025 Treatment Notes Assessment Notes Mixed hyperlipidemia [facility]. Next Appt Details Follow Up: 3 months, Reason: Progress Notes * KONRAD HELM:1960 ([age] yo F)Acc No.[id number]:11/26/2024 Progress Notes Patient: ROBBI AVITIA Provider: EDWIN Mills :1960 A ge:64 Y S ex:Female Date:11/26/2024 Address:[address] [place] [address], [place], [id number] Subjective: * Chief Complaints: * 1 . 6 months. 2. Needs labs, colon cancer screening, & shingles vaccine. * HPI: C ardiology: The patient is here today for a check-up. Pt states she does not check her BP at home. Pt states she would like to discuss weight loss. Pt is not fasting. Denies : Chest Pain. D enies : Short of Breath. D enies : Dizziness. D enies : Palpitations. * ROS: D ERMATOLOGY: no R david. n o H jung. G ASTROENTEROLOGY: no N ausea. n o V omiting. n o D iarrhea.? U ROLOGY: no D ifficulty urinating. n o B lood in urine. * Medical History: S tomach Ulcers, Cervical stenosis with injections and decompression therapy. * Surgical History: A ppendectomy, [facility] 2007. * Family History: F ather: alive, [...] tab(s) orally once a day , Taking tiZANidine HCl 2 MG Tablet 1-2 tablets at bedtime as needed Orally Once a day , Taking Celecoxib 200 MG Capsule TAKE 1 CAPSULE BY MOUTH ONCE DAILY WITH FOOD , Taking PARoxetine HCl 20 MG Tablet 1 tab(s) orally once a day , Taking Metoprolol Succinate ER 50 MG Tablet Extended Release 24 Hour Take 1 tablet by mouth once daily , Discontinued Albuterol Sulfate HFA 108 (90 Base) MCG/ACT Aerosol Solution 1 puff as needed Inhalation QID AND PRN , Discontinued Benzonatate 200 MG Capsule 1 capsule as needed Orally tid prn , Medication List reviewed and reconciled with the patient * Allergies: N .K.D.A. Objective: * Vitals: W t: 170.4, Temp: 98.0, BP: 130/90, HR: 81, Nurse: ONEAL, Ht: 63, Repeat BP: 128/88, BMI:30.18. * Examination: G eneral Examination: General Appearance: N AD. H EENT: u nremarkable.?Oral cavity: n o lesions, mucosa moist and WNL, no erythema. N walt: s upple, no lymphadenopathy. C hest: n ormal shape and expansion. H eart: R SR. L ungs: c lear to auscultation. A bdomen: b owel sounds present , soft and nontender , no organomegaly or masses , no guarding or rigidity. N eurologic Exam: I ntact, gait normal. S kin: n ormal, no rash. P eripheral pulses: n ormal (2+) bilaterally. E xtremities: n o leg edema. Assessment: * Assessment: 1. E ncounter for weight management - Z76.89 (Primary) 2 . O besity (BMI 30-39.9) - E66.9 3 . H ot flash, menopausal - N95.1 4 . M ixed hyperlipidemia - E78.2 5 . E ssential hypertension - I10 6 . Menopausal and perimenopausal disorder - N95.9 7 . A nxiety - F41.9 ? 8 . C olon cancer screening - Z12.11 9 . B VA 30.0-30.9,adult - Z68.30 Plan: * Treatment: 2. M ixed hyperlipidemia Notes: Will get labs at next appt. 3. C olon cancer screening L AB: Alvina (Collection Date & Time - 12/18/2024) N egative Value Reference Range C tara negative * Jessica Faustin 11/27/2024 12:5 5:22 PM > order faxShanti Griffin 12/24/2024 12:48:35 PM EDT >pt informed * Procedure Codes: 3 074F SYST BP LT 130 MM HG, 3079F DIAST BP 80-89 MM HG * Follow Up: 3 months * Images: Billing Information: * Visit Code: 43721 Office Visit, Est Pt., Level 4. * Procedure Codes: 3074F SYST BP LT 130 MM HG. 3079F DIAST BP 80-89 MM HG. * Electronic signature of EDWIN Muro on 04/01/2025 at 07:42 AM EDT Sign off status: Pending * Provider: EDWIN Mills Date: 0 11/26/2024 Generated for Niraj vargas/Bindu/eTransmitting on: 0 04/01/2025 07:42 AM EDT History and Physical Notes * HPI (History of Present Illness) Category Sub-Category Detail Notes Category Not es Cardiology Short of Breath Chest Pain Palpitations Dizziness Examination Category Sub-Category Detail Notes Category Not es General Examination HEENT: unremarkable Heart: RSR Lungs: clear to auscultatio n Abdomen: bowel sounds present , soft and nontender , no organomegaly or masses , no guarding or rigidity Extremities: no leg edema General Appearance: NAD Skin: normal, no rash Neurologic Exam: Intact, gait normal Neck: supple, no lymphaden opathy Oral cavity: no lesions, mucosa m oist and WNL, no erythema Peripheral pulses: normal (2+) bilatera lly Chest: normal shape and exp ansion
--- OUTSIDE RECORDS SUMMARY | 2025-03-17 09:15 | XMS_ITS ---
[facility] Address [address] [facility] [address] [place] [id number] Care Team Providers Care Trench Pipe Layer Name Role Phone Brigida Ambreen Primary Care Provider [phone] Allergies No Known Allergies Reason For Referral Diagnosis 1 Short-term memory lo ss (R41.3) [facility] Referring Provider First Name Ambreen Referring Provider Last Name Brigida Referring Provider Speciality Physician Dynamo Repairer Referred Provider Specialty Neurology General Notes Needs an appt with Adrienne Romero Brynn 03/17/2025 02:50:43 PM > fax[facility] to [facility] NeurologyAdrienne Brynn 03/19/2025 10:57:51 AM > confirmed received by Kandis in neurology Referral Priority Routine REASON FOR VISIT check up, [facility] referral Medications Medication SIG (Take, Route, Frequency, Duration) Notes Start Date End Date Status Celecoxib 200 MG 1 capsule as needed Orally Once a day; Duration: 90 days Active Atorvastatin Calcium 10 MG Take 1 tablet by mouth once daily; Duration: 90 Active PARoxetine HCl 20 MG 1 tab(s) orally onc e a day; Duration: 90 days Active tiZANidine HCl 2 MG 1-2 tablets at bedti me as needed Orally Once a day; Duration: 30 day(s) 03/26/2024 Active Tirzepatide 2.5 MG/0.5ML as directed Subcutaneous Active Metoprolol Succinate ER 50 MG Take 1 tablet by mouth once daily; Duration: 90 Active Problems Problem Type SNOMED Code ICD Code Onset Dates Problem Status W/U Status Risk Notes Problem Short-term memory loss (645066248) Short-term memory loss (R41.3) Active confirmed Vital Signs Blood pressure systolic 132 mm Hg 03/17/20 25 Blood pressure diastolic 82 mm Hg 025 Heart Rate 63 /min 03/17/2025 Height 63 in 03/17/2025 Weight 163 lbs 03/17/2025 BMI 28.87 kg/m2 03/17/2025 Encounters Encounter Location Date Provider Diagnosis [facility] [address] [place], [place] [id number] 03/17/2025 Ambreen Allred Short-term memory lo ss R41.3 ; Mixed hyperlipidemia E78.2 ; Essential hypertension I10 ; Menopausal and perimenopausal disorder N95.9 ; Hot flash, menopausal N95.1 ; Anxiety F41.9 and Screening mammogram, encounter for Z12.31 Assessments Encounter Date Diagnosis (ICD Code) Assessment Notes Treatment Notes Treatment Clinical Notes Section Notes 03/17/2025 Short-term memory loss (ICD-10 - R41.3) 03/17/2025 Mixed hyperlipidemia (ICD-10 - E78.2) 03/17/2025 Essential hypertension (ICD-10 - I10) 03/17/2025 Menopausal and perimenopausal disorder (ICD-10 - N95.9) 03/17/2025 Hot flash, menopausal (ICD-10 - N95.1) 03/17/2025 Anxiety (ICD-10 - F41.9) 03/17/2025 Screening mammogram, encounter for (ICD-10 - Z12.31) Plan Of Treatment Pending Test Test Name Order Date Mammogram 03/17/2025 H-TSH 03/17/2025 H-CBC 03/17/2025 H-Lipid Panel 03/17/2025 H-CMP 03/17/2025 H-VITAMIN B12 03/17/2025 Referrals Referral Date Details 03/17/2025 03/17/2025 Next Appt Details Follow Up: via phone to repo rt test results, Reason: Progress Notes * KONRAD HELM:1960 ([age] yo F)Acc No.[id number]:03/17/2025 Progress Notes Patient: ROBBI AVITIA Provider: EDWIN Mills :1960 A ge:64 Y S ex:Female Date:03/17/2025 Address:[address] [place] [address] [address], [place], [id number] Subjective: * Chief Complaints: * 1 . Check up, homar referral. * HPI: C ardiology: Pt here for a checkup on Hypertension. Pt needs an order for a m ammogram. Pt is not fasting. N eurology: c/o memory loss P t states she has been having a lot of memory loss. Pt states it has been off and on for a few years but worse the past month. * ROS: D ERMATOLOGY: no R david. n o H jung. G ASTROENTEROLOGY: no N ausea. n o V omiting. n o D iarrhea.? U ROLOGY: no D ifficulty urinating. n o B lood in urine. * Medical History: S tomach Ulcers, Cervical stenosis with injections and decompression therapy. * Surgical History: A ppendectomy, [facility] 2007. * Family History: F ather: alive, diagnosed with Hypertension. M other: alive. 3 brother(s) - healthy. 2 daughter(s) - healthy. . 1 brother - MS\n1 brother - Glioblastoma brain tumor. * Social History: C URRENT TOBACCO USE: No . C affeine: yes, frequency: tea x 2 cups daily. Home smoke detector use: yes. Marital Status: . * Medications: T aking Tirzepatide 2.5 MG/0.5ML Solution Auto-injector as directed Subcutaneous , Taking tiZANidine HCl 2 MG Tablet 1-2 tablets at bedtime as needed Orally Once a day , Taking Atorvastatin Calcium 10 MG Tablet Take 1 tablet by mouth once daily , Taking Celecoxib 200 MG Capsule 1 capsule as needed Orally Once a day , Taking PARoxetine HCl 20 MG Tablet 1 tab(s) orally once a day , Taking Metoprolol Succinate ER 50 MG Tablet Extended Release 24 Hour Take 1 tablet by mouth once daily , Medication List reviewed and reconciled with the patient * Allergies: N .K.D.A. Objective: * Vitals: W t: 163, Temp: 98.1, BP: 132/82, HR: 63, Nurse: jacob, Ht: 63, BMI:28.87. * Examination: G eneral Examination: General Appearance: N AD. H EENT: u nremarkable.?Oral cavity: n o lesions, mucosa moist and WNL, no erythema. N walt: s upple, no lymphadenopathy. C hest: n ormal shape and expansion. H eart: R SR. L ungs: c lear to auscultation. A bdomen: b owel sounds present, soft and nontender. N eurologic Exam: I ntact, gait normal. S kin: n ormal, no rash. P eripheral pulses: n ormal (2+) bilaterally. E xtremities: n o leg edema. Assessment: * Assessment: 1. S hort-term memory loss - R41.3 (Primary) 2 . M ixed hyperlipidemia - E78.2 3 . E ssential hypertension - I10 4 . M enopausal and perimenopausal disorder - N95.9 5 . H ot flash, menopausal - N95.1 6. A nxiety - F41.9 7 . S creening mammogram, encounter for - Z07.21 ? Plan: * Treatment: 2. M ixed hyperlipidemia L AB: H-Lipid Panel 3. E ssential hypertension L AB: H-TSH L AB: H-CMP 4. S creening mammogram, encounter for I maging: Mammogram * Procedure Codes: 8 5025 CBC WITH AUTO DIFF, 64896 VENIPUNCT, ROUTINE* * Follow Up: v ia phone to report test results * Images: Billing Information: * Visit Code: 44511 Office Visit, Est Pt., Level 4. * Procedure Codes: 61338 CBC WITH AUTO DIFF. 37327 VENIPUNCT, ROUTINE*. * Electronic signature of EDWIN Muro on 04/01/2025 at 07:42 AM EDT Sign off status: Pending * Provider: EDWIN Mills Date: 0 03/17/2025 Generated for Niraj vargas/Bindu/Jannetitting on: 0 04/01/2025 07:42 AM EDT History and Physical Notes * HPI (History of Present Illness) Category Sub-Category Detail Notes Category Not es Neurology memory loss Pt states she singh s been having a lot of memory loss. Pt states it has been off and on for a few years but worse the past month Examination Category Sub-Category Detail Notes Category Not es General Examination HEENT: unremarkable Heart: RSR Lungs: clear to auscultatio n Abdomen: bowel sounds present , soft and nontender Extremities: no leg edema General Appearance: NAD Skin: normal, no rash Neurologic Exam: Intact, gait normal Neck: supple, no lymphaden opathy Oral cavity: no lesions, mucosa m oist and WNL, no erythema Peripheral pulses: normal (2+) bilatera lly Chest: normal shape and exp ansion Consultation Request Notes Referral Date Referring Provider Referred Provider Not es 03/17/2025 Ambreen Allred ,
--- NOTE | 2025-04-01 07:42 | MM_ITS ---
PROCEDURE INFORMATION: Exam: MG Bilateral Screening 3D Mammography Exam date and time: 04/01/2025 7:58 AM Age: 64 years old Clinical indication: Screening examination TECHNIQUE: Imaging protocol: Bilateral Screening tomosynthesis and 2D mammography including computer-aided detection (CAD) when performed. COMPARISON: 1. MG MM DIG SCREENING MAMM BI W/CAD 03/03/2024 9:48 AM 2. MG MM DIG SCREENING MAMM BI W/CAD 02/25/2023 1:08 PM FINDINGS: MAMMOGRAPHY: Breast composition: There are scattered areas of fibroglandular density. Mass: None. Architectural distortion: None. Calcifications: No suspicious calcifications. Asymmetric density: None. Skin thickening: None. Axillary adenopathy: None. IMPRESSION: No mammographic evidence of malignancy. Annual screening is recommended unless otherwise clinically indicated. ASSESSMENT: BI-RADS Category 1: Negative.
--- OUTSIDE RECORDS SUMMARY | 2025-04-01 07:42 | XMS_ITS | Patient Health Record ---
Author Organization [facility] Address [address] [id number] Care Team Providers Care House Rn Name Role Phone Ambreen Allred Primary Care Provider CarolannGreg Unavailable [phone] Susi Long Unavailable [phone] Allergies No Known Allergies Results Component Value [...] Interpretation:neg Performing Lab: Notes/Report: neg Result: neg Cologuard Reviewed date:12/24/2024 12:48:44 PM Interpretation:Negative Performing Lab: Notes/Report: Negative Cologuard negative CBC Venipuncture (in house) Reviewed date:05/06/2024 02:48:05 [...] 231 100 - 400 P-Comprehensive Metabolic Pa disha (CMP) Reviewed date:05/14/2024 09:31:04 AM Interpretation:Normal Performing Lab: Notes/Report: Test performed by [facility] [address] [place] [address] , [address], [place] [address] Doe Ashley MD, [employer] CLIA: [id number] Sodium 141 135-145 mmol/L Potassium 4.1 3.5-5.3 [...] 0.6 <0.2-1.2 mg/dL A/G Ratio 2.0 1.1-2.5 CBC Fingerstick (in house) Reviewed date:07/29/2024 09:12:44 [...] - 38 plat 198 100 - 400 Reason For Referral Diagnosis 1 Short-term memory lo ss (R41.3) Referral Organization [facility] Referring Provider First Name Ambreen Referring Provider Last Name Brigida Referring Provider Speciality Physician Physician Office Secretary Referred Provider Specialty Neurology General Notes Needs an appt with Adrienne Romero Brynn 03/17/2025 02:50:43 PM > faxed to [facility] NeurologyAdrienne Brynn 03/19/2025 10:57:51 AM > confirmed received by Kandis in neurology Referral Priority Routine Medications Medication SIG (Take, Route, Frequency, Duration) Notes Start Date End Date Status Celecoxib 200 MG 1 capsule as needed Orally Once a day; Duration: 90 days Active Metoprolol Succinate ER 50 MG Take 1 tablet by mouth once daily; Duration: 90 Active PARoxetine HCl 20 MG 1 tab(s) orally onc e a day; Duration: 90 days Active Atorvastatin Calcium 10 MG Take 1 tablet by mouth once daily; Duration: 90 Active tiZANidine HCl 2 MG 1-2 tablets at bedti me as needed Orally Once a day; Duration: 30 day(s) 03/26/2024 Active Tirzepatide 2.5 MG/0.5ML as directed Subcutaneous Active Immunizations Vaccine Route Administration Date Status Comme nts Tetanus Tdap-Adacel (over 7yrs) IM Intramuscular 10/08/2018 Administered COVID 19 Pfizer Unknown 12/15/2020 Administered COVID 19 Pfizer Unknown 01/05/2021 Administered Problems Problem Type SNOMED Code ICD Code Onset Dates Problem Status W/U Status Risk Notes Problem Menopausal and perimenopausal disorder (N95.9) Active confirmed Problem Essential hypertension (45572623) Essential hypertension (I10) Active confirmed Problem Anxiety (62009193) Anxiety (F41.9) Active confirmed Problem Body mass index 30+ - obesity (233908423) BMI 30.0-30.9,adult (Z68.30) Active confirmed Problem Mixed hyperlipidemia (944469512) Mixed hyperlipidemia (E78.2) Active confirmed Problem Obesity (588978716) Obesity (BMI 30-39.9) (E66.9) Active confirmed Problem Menopausal flushing (922554190) Hot flash, menopausal (N95.1) Active confirmed Problem Short-term memory loss (942338863) Short-term memory loss (R41.3) Active confirmed Vital Signs Heart Rate 63 /min 03/17/2025 Blood pressure diastolic 82 mm Hg 03/17/2025 Height 63 in 03/17/2025 Blood pressure systolic 132 mm Hg 03/17/2025 Weight 163 lbs 03/17/2025 BMI 28.87 kg/m2 03/17/2025 Encounters Encounter Location Date Provider Diagnosis [facility] [address] [place], [place] [id number] 05/06/2024 Ambreen Allred Mixed hyperlipidemia E78.2 and Essential hypertension I10 [facility] [address] [place], [place] [id number] 07/28/2024 Greg [place] Acute URI J06.9 [facility] [address] [place], [place] [id number] 09/08/2024 Susi Long Bronchitis J40 [facility] [address] [facility] [address] [place], [place] [id number] 11/26/2024 Ambreen Allred Obesity (BMI 30-39.9 ) E66.9 ; Encounter for weight management Z76.89 ; Hot flash, menopausal N95.1 ; Mixed hyperlipidemia E78.2 ; Essential hypertension I10 ; Menopausal and perimenopausal disorder N95.9 ; Anxiety F41.9 ; Colon cancer screening Z12.11 and BMI 30.0-30.9,adult Z68.30 [facility] [address] [facility] [address] [place], [place] [id number] 03/17/2025 Ambreen Allred Short-term memory lo ss R41.3 ; Mixed hyperlipidemia E78.2 ; Essential hypertension I10 ; Menopausal and perimenopausal disorder N95.9 ; Hot flash, menopausal N95.1 ; Anxiety F41.9 and Screening mammogram, encounter for Z12.31 [facility] [address] [place], [place] [id number] 04/01/2024 Ambreen Brigida [facility] [address] [place], [place] [id number] 04/27/2024 Ambreen Allred Cervical spinal stenosis M48.02 [facility] [address] [place], [place] [id number] 04/30/2024 Ambreen Allred Essential hypertensi on I10 [facility] [address] [place], [place] [id number] 05/01/2024 Ambreen Allred Essential hypertensi on I10 [facility] [address] [facility] [address] [place] [id number] 06/16/2024 Ambreen Capone [address] [facility] [address] [place] [id number] 08/24/2024 Ambreen Allred Cervical spinal stenosis M48.[address] [facility] [address] [place] [id number] 11/26/2024 Ambreen Allred Assessments Encounter Date Diagnosis (ICD Code) Assessment Notes Treatment Notes Treatment Clinical Notes Section Notes 03/17/2025 Short-term memory loss (ICD-10 - R41.3) 05/06/2024 Essential hypertension (ICD-10 - I10) BP is much better. Will recheck labs and if all is normal, she can wait and f/u in 6 months. 05/06/2024 Mixed hyperlipidemia (ICD-10 - E78.2) 04/27/2024 Cervical spinal stenosis (ICD-10 - M48.02) 03/17/2025 Mixed hyperlipidemia (ICD-10 - E78.2) 04/30/2024 Essential hypertension (ICD-10 - I10) 05/01/2024 Essential hypertension (ICD-10 - I10) 07/28/2024 Acute URI (ICD-10 - J06.9) 09/08/2024 Bronchitis (ICD-10 - J40) fluids, rest, supportive measures for fever/symptom relief 11/26/2024 Obesity (BMI 30-39.9) (ICD-10 - E66.9) 11/26/2024 Encounter for weight management (ICD-10 - Z76.89) 08/24/2024 Cervical spinal stenosis (ICD-10 - M48.02) 03/17/2025 Essential hypertension (ICD-10 - I10) 11/26/2024 Hot flash, menopausal (ICD-10 - N95.1) 11/26/2024 Mixed hyperlipidemia (ICD-10 - E78.2) Will get labs at next appt. 03/17/2025 Menopausal and perimenopausal disorder (ICD-10 - N95.9) 11/26/2024 Essential hypertension (ICD-10 - I10) 03/17/2025 Hot flash, menopausal (ICD-10 - N95.1) 11/26/2024 Menopausal and perimenopausal disorder (ICD-10 - N95.9) 03/17/2025 Anxiety (ICD-10 - F41.9) 11/26/2024 Anxiety (ICD-10 - F41.9) 03/17/2025 Screening mammogram, encounter for (ICD-10 - Z12.31) 11/26/2024 Colon cancer screening (ICD-10 - Z12.11) 11/26/2024 BMI 30.0-30.9,adult (ICD-10 - Z68.30) Plan Of Treatment Pending Test Test Name Order Date ultrasound : Transvaginal 03/04/2024 Mammogram 03/17/2025 H-TSH 03/17/2025 H-CBC 03/17/2025 H-Lipid Panel 08/31/2021 H-Lipid Panel 03/17/2025 H-CMP 03/17/2025 H-VITAMIN B12 03/17/2025 P-Comprehensive Metabolic Panel (CMP) Insurance Providers Payer Name Payer Address Payer Phone Subscriber Number Group Number Insured Name Patient Relationship to Insured Coverage Start Date Coverage End Date [employer] [address] [place] [address] [id number] ROBBI HELM Self - patient is the insured Medical (General) History Medical History History ICD Code Stomach Ulcers Cervical stenosis with injections and de compression therapy Surgical History Surgery Date(Month/Year) Appendectomy, [facility] 2007 Hospitalization History Reason Date(Month/Year)
--- OUTSIDE RECORDS SUMMARY | 2025-04-01 07:42 | XMS_ITS | Clinical Summary ---
Author Organization [facility] Address [address] [place] [address] Care Team Providers Care Log Loader Helper Name Role Phone Genny Gomez APRN Primary Care Provider [phone] Allergies No known active allergies Medications omeprazole (PriLOSEC) 20 MG capsule Take 20 mg by mouth daily. Active PARoxetine (PAXIL) 10 MG tablet Take 10 mg by mouth every night. 0 12/16/2015 Active tiZANidine (ZANAFLEX) 2 MG tablet Take half to 1 tablet three times a day as needed for muscle spasms. 90 tablet 3 01/31/2016 Active nortriptyline (PAMELOR) 10 MG capsule Take 1-2 capsules QHS 60 capsule 3 01/31/2016 Active lidocaine (LIDODERM) 5 % Place 1 patch on the skin every day. Remove & Discard patch within 12 hours or as directed by MD 30 patch 3 01/31/2016 Active PICATO 0.015 % gel 0 07/30/2016 Active Active Problems Problem Noted Date Diagnosed Date Cervical facet arthropathy/c ervical spondylosis without myelopathy 01/31/2016 Right greater occipital neuralgia 01/31/2016 Insomnia 01/31/2016 Osteopenia 01/31/2016 History of migraine headaches 01/31/2016 Myofascial pain 01/31/2016 History of peptic ulcer 01/31/2016 Family History Medical History Relation Name Comments Cancer Brother 1 Multiple sclerosis Brother 2 Diabetes Mother Relation Name Status Comments Brother 1 Brother 2 Mother Social History Tobacco Use Types Packs/Day Years Used Date Smoking Tobacco: Never Smokeless Tobacco: Never Alcohol Use Standard Drinks/Week Comments Yes 0 (1 standard drink = 0.6 oz pur e alcohol) Abuse Screen Answer Date Recorded Unsafe at Home or Work/School Not on file Feels Threatened by Someone? Not on file 05/2023 Does Anyone Keep You from Co ntacting Others or Doint Things Outside the Home? Not on file 05/01/2023 Physical Sign of Abuse Present Not on file 1 Housing Stability Answer Date Recorded Current Living Arrangements Not on file 04/21 Potentially Unsafe Housing Conditions Not on vandana e 05/01/2023 Family and Community Support Answer Faisal e Recorded Help with Day-to-Day Activities Not on file 05/01/2023 Lonely or Isolated Not on file 05/01/2023 Employment Answer Date Recorded Do you want help finding or keeping work or a cait b? Not on file 05/01/2023 Disabilities Answer Date Recorded Concentrating, Remembering, or Making Decisions Difficulty Not on file 05/01/2023 Doing Errands Independently Difficulty Not on fi le 05/01/2023 Education Answer Date Recorded Help with school or training? Not on file Preferred Language Not on file 05/01/2023 Comments Unknown Sex and Gender Information Value Date Recorded Sex Assigned at Not on file Legal Sex Female 1:08 PM EDT Gender Identity Not on file Sexual Orientation Not on file Last Filed Vital Signs Vital Sign Reading Time Taken Comments Blood Pressure 145/82 01/31/2016 8:32 AM EDT Pulse 80 01/31/2016 8:32 AM EDT Temperature 36.9 C (98.5 F) 01/31/2016 8:32 AM EDT Respiratory Rate 18 01/31/2016 8:32 AM EDT Oxygen Saturation 98% 01/31/2016 8:32 AM EDT Inhaled Oxygen Concentration - - Weight 73 kg (161 lb) 01/31/2016 8:32 AM EDT Height 157.5 cm (5' 2 ) 01/31/2016 8:32 AM EDT Body Mass Index 29.45 01/31/2016 8:32 AM EDT Plan of Treatment Health Maintenance Due Date Last Done Comments ANNUAL PHYSICAL 1960 Annual Gynecologic Pelvic and Breast Exam 1960 HEPATITIS C SCREENING 1962 TDAP/TD VACCINES (1 - Tdap) 1981 MAMMOGRAM 2002 COLOGUARD 11/26/2007 COLON CANCER SCREENING 5 YEAR SIGMOIDOSCOPY 11/26/2007 COLONOSCOPY 11/26/2007 COLORECTAL CANCER SCREENING 11/26/2007 CT COLONOGRAPHY 11/26/2007 FECAL OCCULT BLOOD TEST 11/26/2007 FIT Testing (1 year) 11/26/2007 Pneumococcal Vaccine 50+ (1 of 1 - PCV) 2012 ZOSTER VACCINE (1 of 2) 2012 COVID-19 Vaccine (1 - ) 03/22/2025 INFLUENZA VACCINE 04/21/2025 Insurance [employer] Care Teams Log Loader Helper Relationship Specialty Start Date End Date Genny Gomez APRN PCP - General Family Medicine 12/14/15
--- OUTSIDE RECORDS SUMMARY | 2025-04-01 07:42 | XMS_ITS | Continuity of Care Document ---
Author Organization [facility] Address [address] [place] [address] Social History Not on File Plan of Treatment Not on file
--- OUTSIDE RECORDS SUMMARY | 2025-04-01 07:42 | XMS_ITS | Clinical Summary ---
Author Organization [facility] Address [address] [place] [id number] Care Team Providers Care Marketing Writer Name Role Phone Pcp, Lauren Primary Care Provider [phone] Source Comments This information has been disclosed to you from confidential records protectedfrom disclosure by state law. You shall make no further disclosure of thisinformation without the specific, written, and informed release of theindividual to whom it pertains, or as otherwise permitted by law. A generalauthorization for the release of medical or other information is not sufficientfor the purposes of therelease of HIV test results or diagnoses. [id number] Allergies No known active allergies Medications omeprazole (PRILOSEC) 20 MG capsule Take 20 mg by mouth daily. Active FYAVOLV 0.5-2.5 mg-mcg per tablet Take 0.5 mg by mouth daily. 1 6 Active PARoxetine (PAXIL) 10 MG tablet Take 10 mg by mouth at bedtime. Active meloxicam (MOBIC) 15 MG tablet 1 tablet daily. 7 Active cyclobenzaprine (FLEXERIL) 10 MG tablet Take 1 tablet (10 mg total) by mouth 3 times a day as needed for Muscle spasms. 90 tablet 3 8 Active Additional Information Patient taking differently:10 mg Oral2 times daily PRN, Muscle spasms, Reported on 12/11/2017 Family History Medical History Relation Comments Hypertension Father Relation Status Comments Father Alive Mother Alive Social History Tobacco Use Types Packs/Day Years Used Date Smoking Tobacco: Never Smokeless Tobacco: Never Alcohol Use Standard Drinks/Week Comments Yes 0 (1 standard drink = 0.6 oz pur e alcohol) Comments No Sex and Gender Information Value Date Recorded Sex Assigned at Not on file Legal Sex Female 10:12 PM EST Gender Identity Not on file Sexual Orientation Not on file Last Filed Vital Signs Vital Sign Reading Time Taken Comments Blood Pressure 134/89 12/11/2017 1:35 PM EDT Pulse 87 12/11/2017 1:35 PM EDT Temperature - - Respiratory Rate - - Oxygen Saturation - - Inhaled Oxygen Concentration - - Weight 71.3 kg (157 lb 3.2 oz) 12/11/2017 1:35 P M EDT Height 157.5 cm (5' 2 ) 12/11/2017 1:35 PM EDT Body Mass Index 28.75 12/11/2017 1:35 PM EDT Plan of Treatment Not on file Care Teams Marketing Writer Relationship Specialty Start Date End Date Pcp, No No Address PCP - General Pediatrics 06/25/16
[2025-04-01 08:48] LABS: Hematocrit 43.8 % (37.0-47.0); Hemoglobin 14.3 g/dL (12.2-16.2); Immature Granulocytes % 0.4 %; Mean Corpuscular HGB Conc 32.6 g/dL (31.8-35.4); Mean Corpuscular Hemoglobin 31.2 pg (27.0-31.2); Mean Corpuscular Volume 95.4 fl (81-99); Nucleated Red Blood Cells % 0 %; Platelet Count 238 K/mm3 (142-424); Red Blood Count 4.59 M/mm3 (4.20-5.40); Red Cell Distribution Width-SD 43.3 fL; White Blood Count 5.5 K/mm3 (4.8-10.8)
[2025-04-01 10:18] LABS: Thyroid Stimulating Hormone 3.75 uIU/mL (0.465-4.68)
[2025-04-01 10:35] LABS: Albumin Level 4.6 g/dl (3.5-5.0); Chloride 103 mmol/L (98-107); Sodium 139 mmol/L (136-145)
[2025-04-01 10:36] LABS: Potassium 4.3 mmoL/L (3.5-5.1)
[2025-04-01 10:38] LABS: Alanine Aminotransferase 38 U/L (12-78); Albumin/Globulin Ratio 1.8 (1.1-1.8); Anion Gap 10.3 mEq/L (5-15); Aspartate Amino Transferase 59 U/L (14-36); Blood Urea Nitrogen 17 mg/dl (7-17); Carbon Dioxide 30 mmol/L (22.0-30.0); Cholesterol 237 mg/dl (140-200); Creatinine,Serum 0.50 mg/dl (0.52-1.04); Estimated Glomerular Filt Rate 125 ml/min (>60); GFR (African American) 151 ML/MIN (>60); Globulin 2.5 g/dL (1.3-3.2); Total Protein,Serum 7.1 g/dl (6.3-8.2); Triglycerides 146 mg/dl (30-150); Vitamin B12 924 pg/mL (239-931)
[2025-04-01 10:39] LABS: Alkaline Phosphatase 67 U/L (38-126); Bilirubin,Total 0.7 mg/dl (0.2-1.3); Calcium 9.6 mg/dl (8.4-10.2); Glucose 88 mg/dl (74-100); HDL Cholesterol 82 mg/dl (40-60)
== END 2025-04-01 23:59 | disposition home or self-care (01) ==
PROVIDERS: PCP Physician Assistant; Visit Provider Physician Assistant
DX: Z12.31 Encounter for screening mammogram for malignant neoplasm of breast (principal); R92.323 Mammographic fibroglandular density, bilateral breasts; E78.2 Mixed hyperlipidemia; I10 Essential (primary) hypertension; R41.3 Other amnesia
CPT/HCPCS: 36415; 77063; 77067; 80053; 80061; 82607; 84443; 85025